=== PATIENT | male | born 1950 | race Caucasian/White ===

== ENCOUNTER 2021-05-04 13:01 | Emergency (ER) | payer OTHER, BC ==
--- OUTSIDE RECORDS SUMMARY | 2021-05-04 13:03 | XMS REPORT | Continuity of Care Document ---
:1950 Author Organization [facility] t Address [address] [place] [address] Care Team Providers Name Role Phone Unavailable Unavailable Unavailable Payers Payer Name Policy Type Policy Number Effective Date Expiration Date S ource Problems This patient has no known problems. Allergies, Adverse Reactions, Alerts Allergy Allergy Status Severity Reaction(s) Onset Inactive Treating Comm ents Source Name Type Date Date Clinician No Known DA Active U 2017-03 [facility]04 [place] [facility] hydro[facility] DA Active [place] 2011-03 [facility] [place] [facility] Medications This patient has no known medications. Procedures This patient has no known procedures. Results This patient has no known results.
[2021-05-04] MEDS ORDERED: TRAMADOL HCL 50 MG TAB ONE (13:35)
--- NOTE | 2021-05-04 14:33 | RAD REPORT ---
EXAM DESCRIPTION: RAD - Hand Right 3 View - 05/04/2021 2:07 pm CLINICAL HISTORY: Right hand pain status post injury FINDINGS: A triangular bony density lies adjacent to the lateral base of the first metacarpal. A por tion of the border sclerotic and almost certainly is chronic. However, clinical correlation is needed to see if the patient has point tenderness in this region to suggest acuity. Additional bony density with a sclerotic border adjacent to the medial aspect of the first metacarpal base is chronic. Otherwise, no fracture or dislocation seen
--- NOTE | 2021-05-04 14:45 | EDPHYS ---
Physician Documentation [facility] Name: Obdulia Arias Jr Age: 70 yrs Sex: Male : 1950 Arrival Date: 05/04/2021 Time: 13:05 Bed 12 Private MD: Shen Hightower V ED Physician Chris Castillo HPI: 05/04 14:38 This 70 yrs old Male presents to ER via Ambulatory with complaints of Hand Injury, Fall kb Injury. 14:38 The patient or guardian reports pain, swelling, tenderness. The complaints affect the kb right hand diffusely. Context: The problem was sustained at home, resulted from a fall, on an outstretched hand. Onset: The symptoms/episode began/occurred yesterday. Modifying factors: The symptoms are alleviated by nothing, the symptoms are aggravated by nothing. Associated signs and symptoms: The patient has no apparent associated signs or symptoms. Severity of symptoms: At their worst the symptoms were moderate, in the emergency department the symptoms are unchanged. The patient has not experienced similar symptoms in the past. The patient has not recently seen a physician. Pt reports he tripped and fell onto right hand. c/o pain and swelling to right hand. Historical: - Allergies: 13:28 No Known Allergies; jh5 - PMHx: 13:28 Hypercholesterolemia; Hypertensive disorder; Diabetes mellitus; [facility] - Immunization history:: Adult Immunizations up to date. - Social history:: Smoking status: Patient/guardian denies using tobacco. ROS: 14:36 Constitutional: Negative for fever, chills, and weight loss. kb 14:36 MS/extremity: Positive for injury or acute deformity, pain, swelling, tenderness, of the right hand. 14:36 All other systems are negative. Exam: 14:37 Constitutional: This is a well developed, well nourished patient who is awake, alert, kb and in no acute distress. Head/Face: Normocephalic, atraumatic. ENT: Moist Mucous membranes Respiratory: Respirations even and unlabored. No increased work of breathing. Talking in full sentences Neuro: Awake and alert, GCS 15, oriented to person, place, time, and situation. Moves all extremities. Normal gait. Psych: Awake, alert, with orientation to person, place and time. Behavior, mood, and affect are within normal limits. 14:37 Musculoskeletal/extremity: Extremities: grossly normal except: noted in the right hand: ecchymosis, pain, swelling, tenderness, ROM: intact in all extremities, Circulation is intact in all extremities. Sensation intact. 14:37 Skin: Appearance: normal except for affected area, ecchymosis, that are moderate, of the palm of right hand. Vital Signs: 13:24 BP 150 / 71; Pulse 84; Resp 18; Temp 98.8; Pulse Ox 98% ; Weight 116.57 kg; Height 6 [facility] ft. 3 in. (190.50 cm); Pain 8/10; 13:24 Body Mass Index 32.12 (116.57 kg, 190.50 cm) [facility] MDM: 13:38 Patient medically screened. kb 14:35 Data reviewed: vital signs, nurses notes. Data interpreted: Pulse oximetry: on room air kb is 98 %. Interpretation: normal. Counseling: I had a detailed discussion with the patient and/or guardian regarding: the historical points, exam findings, and any diagnostic results supporting the discharge/admit diagnosis, radiology results, the need for outpatient follow up, a orthopedic surgeon, to return to the emergency department if symptoms worsen or persist or if there are any questions or concerns that arise at home. 14:45 ED course: SPEEDBOAT OPERATOR aware reviewed. No rx found. kb 05/04 13:29 Order name: XRAY Hand RIGHT 3 View; Complete Time: 14:35 [facility] Administered Medications: 13:33 Drug: traMADol 50 mg Route: PO; [facility] Disposition: 15:01 Co-signature as Attending Physician, Chris Castillo MD. rn Disposition Summary: 05/04/21 14:44 Discharge Ordered Location: Home kb Condition: Stable kb Diagnosis - Sprain of other part of right wrist and hand kb Followup: kb - With: Emergency Department - When: As needed - Reason: Worsening of condition Followup: kb - With: Private Physician - When: 2 - 3 days - Reason: Recheck today's complaints, Continuance of care, Re-evaluation by your physician Discharge Instructions: - Discharge Summary Sheet kb - Hand Contusion, [id number] kb Forms: - Medication Reconciliation Form kb - Thank You Letter kb - Antibiotic Education kb - Prescription Opioid Use kb Prescriptions: - Tramadol 50 mg Oral Tablet - take 1 tablet by ORAL route every 8 hours as needed; 12 tablet; Refills: 0, kb Product Selection Permitted Signatures: Dispatcher [employer] Brook Vick, NAVI GONSALVES-Chris Ji MD MD rn DinoSanjana RN RN jh5
--- NOTE | 2021-05-04 14:45 | ER ---
Nurse's Notes [facility] Name: Obdulia Arias Jr Age: 70 yrs Sex: Male : 1950 Arrival Date: 05/04/2021 Time: 13:05 Bed 12 Private MD: Shen Hightower V Diagnosis: Sprain of other part of right wrist and hand Presentation: 05/04 13:24 Chief complaint: Patient states: I fell yesterday and the pain and a lot worse; right 5 hand pain with swelling. Coronavirus screen: Vaccine status: Patient reports receiving the 2nd dose of the covid vaccine. Client denies travel out of the [place] in the last 14 days. Ebola Screen: Patient negative for fever greater than or equal to 101.5 degrees Fahrenheit, and additional compatible Ebola Virus Disease symptoms Patient denies exposure to infectious person. Patient denies travel to an Ebola-affected area in the 21 days before illness onset. Initial Sepsis Screen: Does the patient meet any 2 criteria? No. Patient's initial sepsis screen is negative. Does the patient have a suspected source of infection? No. Patient's initial sepsis screen is negative. Risk Assessment: Do you want to hurt yourself or someone else? Patient reports no desire to harm self or others. Onset of symptoms was May 03, 2021. 13:24 Method Of Arrival: Ambulatory [facility] 13:24 Acuity: SNEHAL 4 5 Triage Assessment: 13:28 General: Appears in no apparent distress. uncomfortable, well groomed, well developed, [facility] Behavior is calm, cooperative, appropriate for age. Pain: Complains of pain in right hand. Musculoskeletal: No deficits noted. Musculoskeletal: Circulation, motion, and sensation intact. Capillary refill < 3 seconds, Range of motion: Swelling. 13:34 Injury Description: Bruise swelling. [facility] Historical: - Allergies: 13:28 No Known Allergies; jh5 - PMHx: 13:28 Hypercholesterolemia; Hypertensive disorder; Diabetes mellitus; [facility] - Immunization history:: Adult Immunizations up to date. - Social history:: Smoking status: Patient/guardian denies using tobacco. Screenin:33 Abuse screen: Denies threats or abuse. Denies injuries from another. Nutritional [facility] screening: No deficits noted. Tuberculosis screening: No symptoms or risk factors identified. Fall Risk Fall in past 12 months (25 points). Assessment: 14:52 General: Appears in no apparent distress. comfortable, Behavior is calm, cooperative. ss Neuro: Level of Consciousness is awake, alert, obeys commands, Oriented to person, place, time, situation. Cardiovascular: Capillary refill < 3 seconds is brisk in bilateral fingers. Respiratory: Airway is patent Respiratory effort is even, unlabored, Respiratory pattern is regular, symmetrical. EENT: Oral mucosa is moist. Throat is clear. Derm: Skin is pink, warm \T\ dry. normal. Vital Signs: 13:24 BP 150 / 71; Pulse 84; Resp 18; Temp 98.8; Pulse Ox 98% ; Weight 116.57 kg; Height 6 [facility] ft. 3 in. (190.50 cm); Pain 8/10; 13:24 Body Mass Index 32.12 (116.57 kg, 190.50 cm) [facility] ED Course: 13:05 Patient arrived in ED. am2 13:05 Shen Hightower MD is Private Physician. am2 13:28 Triage completed. 5 13:28 Arm band placed on right wrist. 5 13:33 Patient has correct armband on for positive identification. Bed in low position. Call [facility] light in reach. Side rails up X 1. 13:33 No provider procedures requiring assistance completed. 5 13:38 Brook Valenzuela FNP-C is [facility]. kb 13:38 Chris Castillo MD is Attending Physician. kb 13:39 Sanjana Sun, VANDA is Primary Nurse. [facility] 14:07 XRAY Hand RIGHT 3 View In Process Unspecified. EDND 14:52 Patient did not have IV access during this emergency room visit. ss Administered Medications: 13:33 Drug: traMADol 50 mg Route: PO; 5 Outcome: 14:44 Discharge ordered by MD. kb 14:52 Discharged to home ambulatory. 14:52 Condition: good 14:52 Discharge instructions given to patient, Instructed on discharge instructions, follow up and referral plans. Demonstrated understanding of instructions, follow-up care, Prescriptions given X 1. 14:54 Patient left the ED. ss Signatures: Dispatcher [employer] EDND Brook Valenzuela FNP-C FNP-Ckb Smirch, Shelby, RN RN Chen, Sanjana Kilgore, RN RN jh5
[2021-05-04 14:58] VITALS: BP 150/71; TEMP 98.8; O2SAT 98
== END 2021-05-04 14:54 | disposition home or self-care (01) ==
LOC: ER 13:01
DX: S63.8X1A Sprain of other part of right wrist and hand, initial encounter (principal); W18.30XA Fall on same level, unspecified, initial encounter; I10 Essential (primary) hypertension
CPT/HCPCS: 99283

== ENCOUNTER 2023-09-30 13:30 | Emergency (ER) | payer BC, OTHER ==
--- OUTSIDE RECORDS SUMMARY | 2023-09-30 13:32 | XMS REPORT | Continuity of Care Document ---
Author Name Unknown Address [address] [place] [address] [address] [place] [address] [facility] Address [address] [facility] [address] [place] [address] Care Team Providers Care Survey Supervisor Name Role Phone Unavailable Unavailable Unavailable Payers Payer Name Policy Type Policy Number Effective Date Expirati on Date Source Allergies, Adverse Reactions, Alerts Allergy Name Allergy Type Status Severity Reaction(s) Onset Date Inactive Date Treating Clinician Comments Source No Known Allergie s DA Active U 2017-03 0-04 00:00: 00 [facility] hydrocod one DA Active [place] 2011-03 00:00: 00 [facility] [place] [facility]
[2023-09-30 14:12] LABS: Absolute Monocytes 1.7 K/uL (0.1-1.3); Absolute Neutrophil 17.3 K/uL (1.8-8.0); Basophils % 0.2 % (0-1.3); Eosinophils % 0.1 % (0-4.4); Hematocrit 45.3 % (39.6-49.0); Hemoglobin 14.3 g/dL (13.6-17.9); MCH 30.4 pg (27.0-35.0); MCHC 31.5 g/dL (32.0-36.0); MCV 96.6 fL (80-100); MPV 8.4 fL (7.6-11.3); Monocytes % 8.5 % (3.3-12.3); Neutrophils % 86.2 % (41.7-73.7); Platelets 283 thou/uL (152-406); Red Cell Distribution Width 13.8 % (12.1-15.2)
[2023-09-30 14:14] LABS: Specific Gravity 1.018 (1.005-1.030); Sqamous Epithelial <5 /HPF (None Seen); Urine Bacteria None Seen /HPF (<20); Urine Bilirubin NEGATIVE (Negative); Urine Blood Trace (Negative); Urine Clarity Turbid (Clear); Urine Color Yellow (Yellow); Urine Culture Reflex Order NOT NEEDED; Urine Glucose 2+ (Negative); Urine Ketones NEGATIVE (Negative); Urine Microscopic Reflex YN ORDER UMIC; Urine Mucus Slight /HPF (None Seen); Urine Nitrite NEGATIVE (Negative); Urine Protein 1+ (Negative); Urine RBC <5 /HPF (None Seen); Urine Urobilinogen Normal (Normal); Urine WBC <5 /HPF (<5); Urine pH 5.5 (5.0-7.0)
[2023-09-30 14:18] LABS: PT Prothrombin Time 13.6 SECONDS (9.4-12.5); PTT, Activated Partial Thromb 27.6 SECONDS (24.3-36.9); Protime INR 1.24
--- NOTE | 2023-09-30 14:20 | RAD REPORT ---
EXAM DESCRIPTION: RAD - Chest Single View - 09/30/2023 2:09 pm CLINICAL HISTORY: SOB/Intubation Chest pain. COMPARISON: <Comparisons> FINDINGS: Portable technique limits examination quality. Moderate bilateral pulmonary opacities are seen, more significant on the left. This may represent pul monary edema or infection/pneumonia. The heart is normal in size. Tip of the ET tube is at the superi or margin of the aortic arch, well above the nesha.
[2023-09-30 14:31] LABS: Albumin/Globulin Ratio 0.8 (1.1-1.8); Anion Gap 15.8 mEq/L (5.0-15.0); Bilirubin Total 0.3 mg/dL (0.2-1.0); Globulin 3.8 g/dL (2.3-3.5); Potassium 5.8 mEq/L (3.5-5.1); Protein, Total 6.8 g/dL (6.4-8.2); Troponin High Sensitivity 184.9 pg/mL (<58.9)
--- NOTE | 2023-09-30 14:40 | ER ---
Nurse's Notes [facility] Name: Obdulia Arias Jr Age: 73 yrs Sex: Male : 1950 Arrival Date: 09/30/2023 Time: 13:30 Bed 14 Private MD: Diagnosis: Septic shock, pneumonia Presentation: 09/29 13:42 Chief complaint: EMS states: called out for unresponsiveness. pt said he has been as6 unresponsive since this morning but just thought pt wasn't feeling well and wanted him to rest. on EMS arrival SpO2 was 68 RA with snoring respirations. EMS intubated with 7.5 ETT 27 \T\ lip. EMS gave Narcan 1mg x2 IV with minimal response. Versed 2.5mg, lv 100mg, ketamine 200 mg. Coronavirus screen: At this time, the client does not indicate any symptoms associated with coronavirus-19. Ebola Screen: No symptoms or risks identified at this time. Initial Sepsis Screen: Does the patient meet any 2 criteria? HR > 90 bpm. Does the patient have a suspected source of infection? No. Patient's initial sepsis screen is negative. Risk Assessment: Do you want to hurt yourself or someone else? Patient reports no desire to harm self or others. Onset of symptoms was September 30, 2023. 13:42 Method Of Arrival: EMS: [facility] as6 13:42 Acuity: SNEHAL 1 as6 Historical: - Allergies: 13:41 No Known Allergies; as6 - PMHx: 13:41 diabetes mellitus; Hypercholesterolemia; Hypertensive disorder; as6 - PSHx: 13:41 knee; as6 - Immunization history:: Adult Immunizations unknown. - Infectious Disease History:: unknown. - Social history:: Smoking status: unknown. Screenin:08 [facility] ED Fall Risk Assessment (Adult) History of falling in the last 3 months, nj1 including since admission No falls in past 3 months (0 pts) Confusion or Disorientation Yes (5 pts) Intoxicated or Sedated Yes (3 pts) Impaired Gait Yes (1 pt) Mobility Assist Device Used No (0 pt) Altered Elimination Yes (1 pt) Score/Fall Risk Level 3 or more points = High Risk Maintained a safe environment, Hourly rounding (assess needs \T\ fall precautionary measures) done, Utilized family, sitter, or virtual internal security manager as indicated. Abuse screen: Unable to obtain. Nutritional screening: No deficits noted. Tuberculosis screening: No symptoms or risk factors identified. Assessment: 14:00 Neuro: Level of Consciousness is unresponsive, Pupils are sluggish, pinpoint. nj1 Cardiovascular: Heart tones present Rhythm is sinus tachycardia. GI: Abdomen is round obese, Abd is soft X 4 quads. 14:00 Respiratory: Airway via oral intubation Breath sounds are coarse bilaterally. nj1 14:45 Reassessment: Family taken to room for ED physician to give update on patient's nj1 condition. 15:00 Reassessment: No changes from previously documented assessment. nj1 16:00 Reassessment: No changes from previously documented assessment. nj1 16:20 Reassessment: Update given to family. nj1 16:50 Reassessment: Taken to CT, accompanied by charge nurse and RT. nj1 17:20 Reassessment: No changes from previously documented assessment. Family at bedside: nj1 and son. 18:00 Reassessment: No changes from previously documented assessment. nj1 19:00 Reassessment: No changes from previously documented assessment. nj1 19:40 Reassessment: [facility] here to transport patient. Report given to Bharath EMTP. nj1 Vital Signs: 13:42 BP 131 / 69; Pulse 120; Resp 18 A; Pulse Ox 97% on ETT vent; FiO2 100 %; as6 13:46 BP 147 / 72; Pulse 122; Resp 16; Pulse Ox 95% on BiPAP; nj1 14:00 BP 142 / 73; Pulse 116; Resp 18; Pulse Ox 97% on ETT vent; mb9 14:30 BP 151 / 80; Pulse 114; Resp 18; Pulse Ox 97% on ETT vent; mb9 14:49 Weight 127.01 kg (R); bc6 15:00 BP 127 / 67; Pulse 102; Resp 18; Pulse Ox 98% on ETT vent; mb9 15:25 BP 127 / 67; Pulse 97; Resp 16; Temp 99.2(R); Pulse Ox 89% on Ventilator; nj1 15:30 BP 79 / 61; Pulse 91; Resp 18; Pulse Ox 95% on ETT vent; mb9 15:40 BP 68 / 53; Pulse 95; Resp 18; Pulse Ox 95% on ETT vent; mb9 15:55 BP 122 / 72; Pulse 87; Resp 18; Pulse Ox 92% on ETT vent; mb9 15:56 BP 71 / 55; Pulse 90; Resp 18; Pulse Ox 91% on ETT vent; MAP 61 mmHg; nj1 16:00 BP 122 / 79; Pulse 83; Resp 18; Pulse Ox 95% on ETT vent; mb9 16:15 BP 144 / 86; Pulse 83; Resp 17; Pulse Ox 89% on ETT vent; nj1 16:30 BP 117 / 74; Pulse 91; Resp 16; Pulse Ox 92% on ETT vent; nj1 17:21 BP 102 / 71; Pulse 91; Resp 16; Pulse Ox 92% on ETT vent; nj1 17:30 BP 97 / 68; Pulse 90; Resp 16; Pulse Ox 92% on ETT vent; nj1 17:49 BP 88 / 64; Pulse 90; Resp 16; Pulse Ox 92% on ETT vent; MAP 73 mmHg; nj1 18:11 BP 89 / 66; Pulse 97; Resp 16; Pulse Ox 94% on ETT vent; mb9 18:16 BP 197 / 96; Pulse 92; Resp 16; Pulse Ox 93% on ETT vent; nj1 18:21 BP 108 / 74; Pulse 96; Resp 16; Pulse Ox 93% on ETT vent; MAP 85 mmHg; nj1 18:40 BP 156 / 85; Pulse 97; Resp 16; Pulse Ox 92% on ETT vent; nj1 19:16 BP 143 / 74; Pulse 96; Resp 16; Pulse Ox 95% on ETT vent; nj1 19:29 BP 111 / 65; Pulse 96; Resp 16; Pulse Ox 95% on ETT vent; MAP 78 mmHg; nj1 19:40 BP 83 / 55; Pulse 95; Resp 16; Pulse Ox 95% on ETT vent; MAP 65 mmHg; nj1 ED Course: 13:32 Patient arrived in ED. sp3 13:32 Jennifer Toure MD is Attending Physician. sp3 13:44 Kelly Reeves, VANDA is Primary Nurse. nj1 13:49 Triage completed. as6 13:50 Arm band placed on. as6 13:50 Tripp cath inserted, using sterile technique, 16 Fr., by ED staff, balloon inflated, to nj1 gravity drainage, urine specimen collected. 13:55 Maintain EMS IV. Dressing intact. Site clean \T\ dry. Gauge \T\ site: 20 L AC. nj 1 13:56 Initial lab(s) drawn, by ED staff, sent to lab. First set of blood cultures drawn by ED aw1 staff, Second set of blood cultures drawn by ED staff, Urine collected: Tripp catheter specimen, marie colored, EKG done, by ED staff. 14:00 Inserted saline lock: 18 gauge in right antecubital area, using aseptic technique. nj1 Blood collected. Inserted by Christy DC. 14:02 Bed in low position. Call light in reach. Side rails up X2. Cleaned of incontinence. aw1 Tripp catheter inserted. tolerated well. urine output noted. 14:03 Blood Culture Adult (2) Sent. aw1 14:03 CBC with Diff Sent. aw1 14:03 CMP Sent. aw1 14:03 Lactate w/ 2H reflex if indic. Sent. aw1 14:03 Protime (+inr) Sent. aw1 14:03 Ptt, Activated Sent. aw1 14:03 Urinalysis w/ reflexes Sent. aw1 14:11 Chest Single View XRAY In Process Unspecified. EDMS 14:34 Notified ED physician of a critical lab result(s). lactate 7.9, troponin 184.9, and mb9 glucose 443. 15:00 Assisted provider with central line placement. Set up central line tray. in left nj1 internal jugular. Line placed by Jennifer Toure MD Placement verified by CXR, blood return, Dressed with Tegaderm. 15:15 Chest Single View In Process Unspecified. EDMS 15:30 attempt to call transfer center no answer . [facility] bc6 15:46 attempt to initiate transfer no answer. [facility] bc6 16:04 CT Head Brain wo Cont In Process Unspecified. EDMS 16:10 NGT: inserted 16 Fr. via right nare. verified placement of air over stomach, verified mb9 return of gastric contents, Placement verified by X-ray, to intermittent suction. Returned gastric contents. Patient tolerated well. 16:15 attempt to initiate transfer no answer [facility] bc6 16:20 attempt to initiate transfer no [facility] . [facility] bc6 16:36 Abdomen 1 View (KUB) In Process Unspecified. EDMS 17:05 Jasmin with [facility] informed me the ICU was at capacity. bc6 17:08 CT Chest Wo Con In Process Unspecified. EDMS 17:14 spoke with Gena at [facility] transfer center trying to initiate faxed over face sheet. bc6 17:28 Dr. Toure attempting to get in contact with [facility] transfer center. threw personal [facility] device and facility device, even pressing the STEMI button and no answer . 17:37 spoke with Gena at [facility] transfer center she informed fax received and she was waiting [facility] on medical clearance. 18:00 Changed dressing on left internal jugular performed by Jeannette Miller RN. nj1 18:12 DOC TO DOC DONE. bc6 18:25 received acceptance at [facility] with Dr Artemio Huynh. 6 19:00 One-on-one care X 200 minutes. nj1 19:07 karan with [facility] given eta of 30 minutes. bc6 19:12 Patient transferred, IV remains in place. nj1 19:59 Provided Education on:. [facility] Administered Medications: 15:08 Drug: NS 0.9% IV (30 ml/kg) 30 ml/kg IV at bolus once; Sepsis Protocol Route: IV; Rate: nj1 bolus; Site: right antecubital; 15:12 Drug: Propofol IV 5 mcg/kg/min IV at calculated rate See Administration Instructions; [facility] Standard concentration 1000 mg / 100 mL; Recommended max rate 50 mcg/kg/min; Titrate 2 mcg/kg/min every 5 minutes to achieve goal (see titration policy); Goal parameter RASS score 0 to -2 {Note: Central [id number].} Route: IV; Rate: calculated rate; Site: Other; 16:23 Follow up: Rate change 10 mcg/kg/min; Instructed by ED physician azar 16:35 Follow up: Rate change 20 mcg/kg/min nj1 16:47 Follow up: Rate change 35 mcg/kg/min; Instructed by ED physician azar 17:18 Follow up: Rate change 50 mcg/kg/min; Brought in from CT by charge nurse with rate at [facility] 50 mcg/kg/min 15:16 Drug: Cefepime IVPB 2 grams IVPB at 200 ml/hr once over 30 mins; (mix in NS 100 mL) nj Route: IVPB; Rate: 200 ml/hr; Infused Over: 30 mins; Site: right antecubital; 15:46 Follow up: Response: No adverse reaction; IV Status: Completed infusion; IV Intake: nj1 100ml 15:20 Drug: vancoMYCIN IVPB 1 grams IVPB once over 2 hrs {Note: Central Line.} Route: IVPB; nj1 Infused Over: 2 hrs; Site: Other; 15:56 Drug: Insulin Regular Human IVP 10 units IVP once {Co-Signature: kj2 (Christy Rios1 RN).} Route: IVP; Site: right antecubital; 16:02 Drug: Norepinephrine IV 0.1 mcg/kg/min IV at calculated rate See Administration nj1 Instructions; (Standard concentration 4 mg / 250 mL D5W); Recommended max rate 3 mcg/kg/min; Titrate 0.05 mcg/kg/min as often as every 5 minutes to achieve goal (see titration policy); Goal parameter MAP greater than 65 mmHg. {Note: Central Line.} Route: IV; Rate: calculated rate; Site: Other; 18:10 Follow up: Response: No adverse reaction; Rate change 0.5 mcg/kg/min mb9 18:16 Follow up: Rate change 0.1 mcg/kg/min nj1 19:40 Follow up: Rate change 0.15 mcg/kg/min nj1 Medication: 19:59 VIS not applicable for this client. nj1 Intake: 15:46 IV: 100ml; Total: 100ml. nj1 Output: 19:30 Urine: 800ml (Tripp); Total: 800ml. nj1 Outcome: 14:40 ER care complete, transfer ordered by . sp3 18:46 Transferred by ground EMS to [facility], Transfer form nj1 completed. Note: Report called to nurse Andrade. 18:46 critical nj1 18:46 Discharge instructions given to family, Instructed on the need for transfer, 19:59 Patient left the ED. nj1 Signatures: Dispatcher [employer] EDMS Jennifer Toure MD MD sp3 Daljit Michel RN RN as6 Madai Chase RN RN mb9 Jessica Gaming6 Kelly Reeves RN RN nj1 Connie Sánchez aw1 Christy Rios RN kj2 Corrections: (The following items were deleted from the chart) 14:02 13:46 BP 147 / 72; Pulse 122bpm; Pulse Ox 95% BiPAP; nj1 nj1 16:39 15:50 BP 71 / 55; Pulse 90bpm; Resp 18bpm; Pulse Ox 95% ET / Ventilator; mb9 [facility] 16:56 16:45 Neuro: Level of Consciousness is unresponsive, Pupils are sluggish, pinpoint, nj1 [facility] 16:56 16:45 Cardiovascular: Heart tones present Rhythm is sinus tachycardia [place] [id number] 16:56 16:45 Respiratory: Airway via oral intubation Breath sounds are coarse bilaterally. [place] [id number] 16:56 16:45 GI: Abdomen is round obese, Abd is soft X 4 quads [place] [id number] 16:56 15:45 Reassessment: No changes from previously documented assessment. [place] [id number] 17:04 15:30 attempt to call transfer center no answer . 6 6 17:04 15:46 attempt to initiate transfer no answer. 6 6 17:04 16:15 attempt to initiate transfer no answer 6 6 17:04 16:20 attempt to initiate transfer no answer 6 6 17:05 16:20 Social work Trauma Team attempt to initiate transfer no answer . 6 6 17:16 17:14 spoke with Gena at [facility] transfer center trying to initiate 6 6 19:07 17:00 Reassessment: No changes from previously documented assessment. tx1 [facility] 19:13 19:10 Assisted provider with central line placement. Set up central line tray. in left nj1 internal jugular. Line placed by Jennifer Toure MD Placement verified by CXR, blood return, Dressed with Tegaderm, nj1
--- NOTE | 2023-09-30 14:40 | EDPHYS ---
Physician Documentation [facility] Name: Obdulia Arias Jr Age: 73 yrs Sex: Male : 1950 Arrival Date: 09/30/2023 Time: 13:30 Bed 14 Private MD: ED Physician Jennifer Toure HPI: 09/29 14:04 This 73 yrs old Male presents to ER via EMS with complaints of Altered mental status sp3 and dyspnea. 14:04 73-year-old male with history of diabetes, hyperlipidemia, hypertension presents sp3 intubated by EMS. Initially EMS was activated due to altered mental status where patient's thought he was sleeping but then he was difficult to arouse. had reported possible difficulty breathing to EMS. EMS originally gave Narcan and checked blood sugar which was normal and then subsequently intubated patient due to altered mental status and no gag reflex. History, ROS and physical severely limited secondary to intubation.. Historical: - Allergies: 13:41 No Known Allergies; as6 - PMHx: 13:41 diabetes mellitus; Hypercholesterolemia; Hypertensive disorder; as6 - PSHx: 13:41 knee; as6 - Immunization history:: Adult Immunizations unknown. - Infectious Disease History:: unknown. - Social history:: Smoking status: unknown. ROS: 14:06 Unable to obtain ROS due to patient is on ventilator, sp3 Exam: 14:06 Constitutional: The patient appears Patient with no signs of trauma, gross bleeding or sp3 any other abnormality. Patient received ketamine and Versed and is currently nonresponsive. Abdomen is soft. Equal breath sounds bilaterally coarse in nature. Other than tachycardia vital signs are normal. Temperature pending. 14:06 Unable to obtain exam due to patient being intubated, 15:17 ECG was reviewed by the Attending Physician. EKG demonstrates sinus tachycardia at 120 sp3 bpm with QTc 452 right bundle branch block and nonspecific diffuse ST's ST changes without evidence of acute ischemia. Vital Signs: 13:42 BP 131 / 69; Pulse 120; Resp 18 A; Pulse Ox 97% on ETT vent; FiO2 100 %; as6 13:46 BP 147 / 72; Pulse 122; Resp 16; Pulse Ox 95% on BiPAP; nj1 14:00 BP 142 / 73; Pulse 116; Resp 18; Pulse Ox 97% on ETT vent; mb9 14:30 BP 151 / 80; Pulse 114; Resp 18; Pulse Ox 97% on ETT vent; mb9 14:49 Weight 127.01 kg (R); bc6 15:00 BP 127 / 67; Pulse 102; Resp 18; Pulse Ox 98% on ETT vent; mb9 15:25 BP 127 / 67; Pulse 97; Resp 16; Temp 99.2(R); Pulse Ox 89% on Ventilator; nj1 15:30 BP 79 / 61; Pulse 91; Resp 18; Pulse Ox 95% on ETT vent; mb9 15:40 BP 68 / 53; Pulse 95; Resp 18; Pulse Ox 95% on ETT vent; mb9 15:55 BP 122 / 72; Pulse 87; Resp 18; Pulse Ox 92% on ETT vent; mb9 15:56 BP 71 / 55; Pulse 90; Resp 18; Pulse Ox 91% on ETT vent; MAP 61 mmHg; nj1 16:00 BP 122 / 79; Pulse 83; Resp 18; Pulse Ox 95% on ETT vent; mb9 16:15 BP 144 / 86; Pulse 83; Resp 17; Pulse Ox 89% on ETT vent; nj1 16:30 BP 117 / 74; Pulse 91; Resp 16; Pulse Ox 92% on ETT vent; nj1 17:21 BP 102 / 71; Pulse 91; Resp 16; Pulse Ox 92% on ETT vent; nj1 17:30 BP 97 / 68; Pulse 90; Resp 16; Pulse Ox 92% on ETT vent; nj1 17:49 BP 88 / 64; Pulse 90; Resp 16; Pulse Ox 92% on ETT vent; MAP 73 mmHg; nj1 18:11 BP 89 / 66; Pulse 97; Resp 16; Pulse Ox 94% on ETT vent; mb9 18:16 BP 197 / 96; Pulse 92; Resp 16; Pulse Ox 93% on ETT vent; nj1 18:21 BP 108 / 74; Pulse 96; Resp 16; Pulse Ox 93% on ETT vent; MAP 85 mmHg; nj1 18:40 BP 156 / 85; Pulse 97; Resp 16; Pulse Ox 92% on ETT vent; nj1 19:16 BP 143 / 74; Pulse 96; Resp 16; Pulse Ox 95% on ETT vent; nj1 19:29 BP 111 / 65; Pulse 96; Resp 16; Pulse Ox 95% on ETT vent; MAP 78 mmHg; nj1 19:40 BP 83 / 55; Pulse 95; Resp 16; Pulse Ox 95% on ETT vent; MAP 65 mmHg; nj1 Procedures: 14:32 Central Line: the site was prepped with Betadine, a triple lumen catheter was inserted, sp3 in the left internal jugular vein, in 1 attempts. placement was verified, by CXR, by blood return, the site was dressed with 4X4s, using sterile technique, the patient tolerated the procedure, well, Ultrasound-guided left IJ placed sterilely by me. MDM: 13:33 Patient medically screened. sp3 14:07 Data reviewed: vital signs, nurses notes, EMS record, old medical records, lab test sp3 result(s), EKG, radiologic studies. ED course: 73-year-old male with altered mental status with PMH above. Differential diagnosis includes sepsis, pneumonia, TIA/CVA spectrum, other intracranial pathology, dehydration, among others. Workup will include CT scan of the head, chest x-ray, EKG, labs, UA, ABG and general supportive care. Will have to transfer patient due to unavailability of pulmonary critical care here at this facility.. 14:36 ED course: Initial data reviewed which demonstrates pneumonia on x-ray as well as sp3 elevated lactate and WBC count. 30 cc/kg normal saline bolus ordered coupled with cefepime and vancomycin for septic shock caused by pneumonia. Central line left IJ also placed. Tripp placed and we will monitor urine output as well. Patient [facility] be transferred to [facility] or other appropriate facility for ICU level care.. 09/29 13:33 Order name: Blood Culture Adult (2) sp3 09/29 13:33 Order name: CBC with Diff; Complete Time: 15:50 sp3 09/29 13:33 Order name: CMP; Complete Time: 14:53 sp3 09/29 13:33 Order name: Lactate w/ 2H reflex if indic.; Complete Time: 14:53 sp3 09/29 13:33 Order name: Protime (+inr); Complete Time: 14:33 sp3 09/29 13:33 Order name: Ptt, Activated; Complete Time: 14:33 sp3 09/29 13:33 Order name: Urinalysis w/ reflexes; Complete Time: 14:33 sp3 09/29 13:33 Order name: Troponin High Sensitivity; Complete Time: 14:53 sp3 09/29 13:33 Order name: BNP; Complete Time: 14:53 sp3 09/29 13:33 Order name: ABG sp3 09/29 15:02 Order name: Manual Differential; Complete Time: 15:50 EDMS 09/29 16:37 Order name: Ghost Lactate-NO COLLECT Timer; Complete Time: 17:31 EDMS 09/29 16:59 Order name: Glucose, Ancillary Testing; Complete Time: 17:31 EDMS 09/29 13:33 Order name: Chest Single View XRAY; Complete Time: 14:33 sp3 09/29 14:03 Order name: CT Head Brain wo Cont; Complete Time: 17:31 sp3 09/29 14:03 Order name: CT Chest Wo Con; Complete Time: 17:31 sp3 09/29 15:12 Order name: Chest Single View; Complete Time: 15:50 EDMS 09/29 16:36 Order name: Abdomen 1 View (KUB); Complete Time: 17:31 EDMS 09/29 13:33 Order name: EKG; Complete Time: 13:33 sp3 09/29 13:33 Order name: Accucheck; Complete Time: 16:42 sp3 09/29 13:33 Order name: Cardiac monitoring; Complete Time: 13:46 sp3 09/29 13:33 Order name: EKG - Nurse/Tech; Complete Time: 13:46 sp3 09/29 13:33 Order name: IV Saline Lock - Large Bore; Complete Time: 13:50 sp3 09/29 13:33 Order name: Labs collected and sent; Complete Time: 14:03 sp3 09/29 13:33 Order name: O2 Per Protocol; Complete Time: 13:46 sp3 09/29 13:33 Order name: O2 Sat Monitoring; Complete Time: 13:46 sp3 09/29 13:33 Order name: Vital Signs; Complete Time: 13:46 sp3 09/29 14:35 Order name: Rectal Temp; Complete Time: 16:21 sp3 Administered Medications: 15:08 Drug: NS 0.9% IV (30 ml/kg) 30 ml/kg IV at bolus once; Sepsis Protocol Route: IV; Rate: nj1 bolus; Site: right antecubital; 15:12 Drug: Propofol IV 5 mcg/kg/min IV at calculated rate See Administration Instructions; nj1 Standard concentration 1000 mg / 100 mL; Recommended max rate 50 mcg/kg/min; Titrate 2 mcg/kg/min every 5 minutes to achieve goal (see titration policy); Goal parameter RASS score 0 to -2 {Note: Central [id number].} Route: IV; Rate: calculated rate; Site: Other; 16:23 Follow up: Rate change 10 mcg/kg/min; Instructed by ED physician nj1 16:35 Follow up: Rate change 20 mcg/kg/min nj1 16:47 Follow up: Rate change 35 mcg/kg/min; Instructed by ED physician nj1 17:18 Follow up: Rate change 50 mcg/kg/min; Brought in from CT by charge nurse with rate at nj1 50 mcg/kg/min 15:16 Drug: Cefepime IVPB 2 grams IVPB at 200 ml/hr once over 30 mins; (mix in NS 100 mL) nj1 Route: IVPB; Rate: 200 ml/hr; Infused Over: 30 mins; Site: right antecubital; 15:46 Follow up: Response: No adverse reaction; IV Status: Completed infusion; IV Intake: nj1 100ml 15:20 Drug: vancoMYCIN IVPB 1 grams IVPB once over 2 hrs {Note: Central Line.} Route: IVPB; nj1 Infused Over: 2 hrs; Site: Other; 15:56 Drug: Insulin Regular Human IVP 10 units IVP once {Co-Signature: kj2 (Christy Rios nj1 RN).} Route: IVP; Site: right antecubital; 16:02 Drug: Norepinephrine IV 0.1 mcg/kg/min IV at calculated rate See Administration nj1 Instructions; (Standard concentration 4 mg / 250 mL D5W); Recommended max rate 3 mcg/kg/min; Titrate 0.05 mcg/kg/min as often as every 5 minutes to achieve goal (see titration policy); Goal parameter MAP greater than 65 mmHg. {Note: Central Line.} Route: IV; Rate: calculated rate; Site: Other; 18:10 Follow up: Response: No adverse reaction; Rate change 0.5 mcg/kg/min mb9 18:16 Follow up: Rate change 0.1 mcg/kg/min nj1 19:40 Follow up: Rate change 0.15 mcg/kg/min nj1 Disposition: 14:32 Critical Care:. sp3 Disposition Summary: 09/30/23 14:40 Transfer Ordered Notes: Transfer Location: [facility] sp3 Reason: Higher level of care sp3 Condition: Stable sp3 Problem: new sp3 Symptoms: have worsened sp3 Accepting Physician: CAROL[facility](09/30/23 19:59) nj1 Diagnosis - Septic shock, pneumonia sp3 Forms: - Medication Reconciliation Form sp3 - SBAR form sp3 Critical care time excluding procedures: 14:32 Critical care time: Bedside Care: 15 minutes, Consultation: 10 minutes, Family sp3 Intervention: 10 minutes. Total time: 35 minutes Signatures: Dispatcher [employer] EDMS Jennifer Toure MD MD sp3 Daljit Michel RN RN as6 Kelly Reeves RN RN nj1 Madai Chase RN mb9 Christy Rios RN kj2 Corrections: (The following items were deleted from the chart) 15:12 14:12 Abdomen Single View ordered. EDOR EDOR 19:59 14:40 [facility] sp3 nj1
[2023-09-30] MEDS ORDERED: VANCOMYCIN 1 GM/VIAL ONE (14:53)
[2023-09-30] MEDS ORDERED: NA CHLORIDE 0.9% 3,000 ML ONE (14:54)
[2023-09-30] MEDS ORDERED: CEFEPIME 2 GM VIAL ONE (14:54)
[2023-09-30] MEDS ORDERED: NA CHLORIDE 0.9% 250 ML ONE (14:54)
[2023-09-30] MEDS ORDERED: NA CHLORIDE 0.9% 100 ML ONE (14:55)
[2023-09-30 15:01] LABS: Differential Total Cells Count 100; Segmented Neutrophils 76 % (40-80)
[2023-09-30 15:02] LABS: Band Neutrophils 6 % (0-1); Blood Morphology Comment NOT SEEN (NOT SEEN); Lymphocytes 8 % (15-42); Monocytes 10 % (0-10); Platelet Estimate ADEQ; Platelets, Giant PRESENT
[2023-09-30] MEDS ORDERED: propofoL 1,000 MG/100 ML VIAL IV ONE ×3 (15:03→19:52)
--- NOTE | 2023-09-30 15:22 | RAD REPORT ---
EXAM DESCRIPTION: RAD - Chest Single View - 09/30/2023 3:13 pm CLINICAL HISTORY: CENTRAL LINE Chest pain. COMPARISON: <Comparisons> FINDINGS: Portable technique limits examination quality. A left-sided venous catheter has tip in the SVC. No pneumothorax. Tip of the endotracheal tube is abo ve the nesha.
[2023-09-30 15:25] LABS: Arterial Blood Carboxyhemoglob 0.7 % (0-1.5); Blood Gas Oxyhemoglobin 92.7 % (94-97); Blood Gas THB 15.8 g/dl (12-18); Blood O2 Saturation 95.2 % (92-98.5)
[2023-09-30] MEDS ORDERED: INSULIN REGULAR (HUMAN) 100 UNIT/ML ONE (15:52)
[2023-09-30] MEDS ORDERED: NOREPINEPHRINE BITARTRATE/D5W 4 MG/250 ML BAG IV ONE (15:53)
--- NOTE | 2023-09-30 16:53 | RAD REPORT ---
EXAM DESCRIPTION: RAD - Abdomen 1 View (KUB) - 09/30/2023 4:37 pm CLINICAL HISTORY: NGT Pain COMPARISON: <Comparisons> FINDINGS: Tip of the enteric tube is in the stomach.
--- NOTE | 2023-09-30 17:19 | RAD REPORT ---
EXAM DESCRIPTION: CT - Head Brain Wo Cont - 09/30/2023 5:05 pm CLINICAL HISTORY: MENTAL STATUS CHANGE Headache, drowsiness COMPARISON: <Comparisons> TECHNIQUE: All CT scans are performed using dose optimization technique as appropriate and may inclu de automated exposure control or mA/KV adjustment according to patient size. FINDINGS: No intracranial hemorrhage, hydrocephalus or extra-axial fluid collection.No areas of brai n edema or evidence of midline shift. Endotracheal tube and enteric tube seen. The paranasal sinuses and mastoids are clear. The calvarium is intact. IMPRESSION: No acute intracranial abnormality.
--- NOTE | 2023-09-30 17:20 | RAD REPORT ---
EXAM DESCRIPTION: CT - Thorax Wo Con CLINICAL HISTORY: Chest pain AMS / SOB COMPARISON: <Comparisons> FINDINGS: Moderate consolidations are present in both lung bases, greater on the left. This likely r epresents pneumonia. No pleural thickening or pleural effusion. No pneumothorax. Endotracheal tube ti p is above the nesha. Enteric tube descends into the stomach. No acute fracture seen. No gross upper abdominal finding. All CT scans are performed using dose optimization technique as appropriate and may include automated exposure control or mA/KV adjustment according to patient size. IMPRESSION: Moderate consolidations are present in both lung bases, greater on the left likely repre senting pneumonia.
[2023-09-30 20:26] VITALS: TEMP 99.2
[2023-09-30 20:41] VITALS: BP 83/55; O2SAT 95
== END 2023-09-30 19:59 | disposition short-term general hospital (02) ==
LOC: ER 13:30
PROC: 05HN33Z Insertion of Infusion Device into Left Internal Jugular Vein, Percutaneous Approach (ICD-10-PCS; principal; 2023-09-30)
DX: J18.9 Pneumonia, unspecified organism (principal); R65.21 Severe sepsis with septic shock
CPT/HCPCS: 87040 ×2; 85025; 81001; 36415; 85610; 82947; 83605; 85730; 84484; 80053; 83880; 70450; 71250; 74018; 71045 ×2; 82805; 51702; 99291; 36600; 94002; 36556; J2704 ×3; J0692; J7050; J7030